=== PATIENT | male | born 1950 | race Caucasian/White ===

== ENCOUNTER 2018-06-24 10:26 | Outpatient (CLI) | payer MEDICARE, BC, SELFPAY ==
[2018-06-24 12:04] LABS: Hemoglobin A1C 6.5 % (4.5-6.2)
[2018-06-24 13:21] LABS: Cholesterol 167 mg/dL (50-200); HDL Cholesterol 63 mg/dL (40-60); LDL CHOLESTEROL 89 mg/dL (<100); Potassium 4.6 mmol/L (3.5-5.1); Triglyceride 98 mg/dL (30-150)
== END 2018-06-24 10:46 ==
PROVIDERS: PCP Family Medicine; Visit Provider Family Medicine
DX: E11.9 Type 2 diabetes mellitus without complications (principal)
CPT/HCPCS: 36415; 80061; 83721; 82565; 83036; 84132

== ENCOUNTER 2020-03-21 00:27 | Outpatient (CLI) | payer MEDICARE, BC, SELFPAY ==
--- NOTE | 2020-03-21 08:00 | DI.US_ITS ---
EXAM: US SCROTUM CLINICAL HISTORY: lump in left scrotum,N50.89. TECHNIQUE: Scrotal ultrasound performed using grayscale, color-flow and spectral Doppler analysis. COMPARISON: No exams were available for comparison FINDINGS: Right testicle: 4.3 x 2.6 x 3.6 cm Echogenicity: Normal. Contour: Smooth. Mass: None seen. Solitary 1 mm calcification in the testicle. Microlithiasis: None. Hydrocele: None. Variocele: None. Hernia: No peristalsing bowel loop identified. Epididymis: Normal. Left testicle: 4.3 x 2.3 x 2.9 cm Echogenicity: Normal. Contour: Smooth. Mass: None seen. Microlithiasis: None. Hydrocele: 4.5 x 1.2 x 5 cm hydrocele. Variocele: None. Hernia: No peristalsing bowel loop identified. Epididymis: 1.7 x 1.9 x 1.1 cm epididymal head cyst. DOPPLER: Color: Symmetric and uniform, no hyperemia. Duplex: Bilateral testicular arterial waveforms visualized. IMPRESSION: 1. 1.7 x 1.9 x 1.1 cm epididymal head cyst. 2. Left hydrocele. DATA REPOSITORY:
== END 2020-03-21 00:47 ==
PROVIDERS: PCP Family Medicine; Visit Provider Family Medicine
DX: N50.3 Cyst of epididymis (principal); N43.3 Hydrocele, unspecified
CPT/HCPCS: 76870

== ENCOUNTER 2021-01-17 19:51 | Outpatient (REF) | payer MEDICARE, BC, SELFPAY ==
[2021-01-19 19:35] LABS: COVID-19 RT-PCR UVMMC Result Negative (Negative)
== END 2021-01-17 19:52 | disposition home or self-care (01) ==
LOC: NCHCN 19:51
PROVIDERS: PCP Family Medicine; Visit Provider Family Medicine
DX: Z20.822 Contact with and (suspected) exposure to COVID-19 (principal); R05 Cough
CPT/HCPCS: U0003

== ENCOUNTER 2022-05-15 04:06 | Outpatient (CLI) | payer MEDICARE, BC, SELFPAY ==
--- NOTE | 2022-05-15 13:00 | NS.NUTBLAN_ITS ---
Messi was referred for diabetes self management education. 6'0 202 lbs BMI 27 A1C (04/12/22): 7.3%, up from 6.7%(10/04/21) Lipids (10/04/21): chol: 148, LDL: 78, HDL: 55, Tri Meds: Vit C, Nexium, statin, Vit E Diet Recall: eritrean yogurt and fruit for B, Lunch: sandwich, D: homemade balanced meal Exercise: continues to work FT at his [employer] in [place] Messi is following the ideal meal plan and life style choices and able to manage his diabetes without medications at this time. The [place] [employer] recommend that A1C goal for his age group is be less than 8%. His A1C has crept up over last year, however, still at target. Provided education to Messi on how to read labels and encouraged increased intake of complex carbs, lean protein and healthy fats. 5% weight loss also recommended. No follow up scheduled at this time.
== END 2022-05-15 04:07 | disposition home or self-care (01) ==
LOC: DS 04:06
PROVIDERS: PCP Family Medicine; Visit Provider Dietitian, Registered
DX: E11.9 Type 2 diabetes mellitus without complications (principal); Z71.3 Dietary counseling and surveillance
CPT/HCPCS: 97802

== ENCOUNTER 2023-09-25 13:43 | Outpatient (REF) | payer MEDICARE, BC, SELFPAY ==
[2023-09-25 14:09] LABS: COMMENT (LAB VIEW ONLY) 31.78 mg/dL; Microalb ug/mg Crea 12.6 ug/mg Cr
== END 2023-09-25 13:44 | disposition home or self-care (01) ==
LOC: LBN 13:43
PROVIDERS: PCP Family Medicine; Visit Provider Family Medicine
DX: E11.9 Type 2 diabetes mellitus without complications (principal)
CPT/HCPCS: 82043; 82570

== ENCOUNTER 2024-10-19 00:09 | Outpatient (CLI) | payer MEDICARE, BC, SELFPAY ==
--- NOTE | 2024-10-19 07:30 | DI.NM_ITS ---
APPROVED REPORT Exam: Exercise Treadmill Patient Location: Out-Patient Room/Bed: Stress Nurse: Gail May RN Ordering Provider:JAKE BEGUM, Contact Number: [phone] BMI: 26.98 Baseline Rhythm: Sinus Bradycardia Comment: Occasional PAC's Indications: Chest pain Medical History Medical History: BAILON, COVID, diabetic dermopathy, white coat syndrome with HTN, HTN, GERD, HLD, DMT2 Cardiac Medications: Nexium, finasteride, lorazepam, losartan, metformin, rosuvastatin Allergies: CRISTÓBAL inhibitors, Cardiac Risk Factors: Family hx, HTN, HLD, diabetes Previous Cardiac Procedures: None Pretest Chest Pain Characteristics: None Exercise History: Physically active Physical Disabilities: None Lung Sounds: Clear to auscultation Heart Sounds: Regular Stress Test Details Test: Exercise stress testing was performed using a El protocol. Nuclear Acquisition: Rest Tc-99m/Stress Tc-99m 1 day Rest Isotope: Tc-99m Sestamibi. Dose: 10.0 Date: 10/19/2024 Injection Time: 0915 Stress Isotope: Tc-99m Sestamibi. Dose: 30.0 Date: 10/19/2024 Injection Time: 1128 HR Resting HR Supine: 61 bpm Max Heart Rate (APMHR): 145 bpm Resting HR Standin bpm Target HR (85% APMHR): 123 bpm Max HR Achieved: 141 bpm % of APMHR: 97 Recovery HR: 85 bpm HR response to stress: Normal HR response to stress BP Resting BP Supine: 132/78 mmHg Resting BP Standin/60 mmHg Max BP: 160/58 mmHg Recovery BP: 124/58 mmHg BP response to stress: Normal blood pressure response to stress. ECG Resting ECG: Sinus Bradycardia Ectopy: Occasional PAC's Stress ECG: Sinus Tachycardia ST Change: No significant ST segment changes noted Arrhythmia: Occasional PAC's Recovery ECG: Sinus Rhythm Recovery ST Change: No significant ST segment changes noted Recovery Arrhythmia: Occasional PAC's Clinical Reason for Termination: Mod SOB, patient request Stress Symptoms: Mod SOB Exercise duration: 09 min27 sec Highest Stage Reached: Stage 4: 4.2 mph at 16% grade. Exercise capacity: 10.89 METs Angina Score: None Rate Pressure Product: 26132 Stress ECG Conclusion 1. Resting electrocardiogram was normal 2. Patient exercised on the El protocol and completed a workload of 11 METS 3. Normal heart rate and blood pressure response to exercise. The patient achieved 97% of maximal predicted heart rate for age 4. There was no electrocardiographic evidence of myocardial ischemia 5. There were no significant dysrhythmias 6. See MPI report Stress Test Summary STAGE Time (mins) Speed (mph) Grade (%) HR BP SpO2 SYMPTOMS METS Supine 61 132/78 96% Standing 67 124/60 1 3 1.7 10 90 130/60 96% 4.5 2 6 2.5 12 112 160/58 98% 7 3 9 3.4 14 140 10 1 min recovery 108 148/52 98% 3 min recovery 86 150/52 98% 6 min recovery 85 126/58 MPI Conclusion Myocardial perfusion is normal. There is no ischemia or evidence of prior infarction Calculated EF is 48% with normal wall motion
--- NOTE | 2024-10-19 14:07 | NUR.NOTE ---
Nursing Note: Patient presented for MPI test. Nursing in room to do stress portion of MPI test. IV noted to be infiltrated when nuclear tech administered erin scan dose (see incident report for more information). IV removed by nursing. Patient remained on video editor x 30 minutes with no changes noted and vital signs remained stable. Patient denied any symptoms and was pleasant and conversing with staff. This nurse spoke with Janine Cline NP regarding erin scan injection/infiltration. Patient ok to leave s/p 30 minutes on monitor after IV injection/infiltration of erin scan. Stress portion of test rescheduled as per Janine Cline patient was not to have another erin scan injection today. Patient agreeable with plan. This nurse spoke with pharmacy who noted there were no specific instructions for erin scan infiltration. Discussed s/s of IV infiltration with patient (by both senior nuclear medicine technologist and nursing) and when to be evaluated urgently. Patient stated understanding and left ambulatory in no apparent distress.
== END 2024-10-19 00:29 ==
LOC: DI 00:09
PROVIDERS: PCP Family Medicine; Visit Provider Internal Medicine Cardiovascular Disease
DX: R07.9 Chest pain, unspecified (principal)
CPT/HCPCS: 78452; 93016; 93018; 93017